=== PATIENT | female | born 1995 | race Caucasian/White ===

== ENCOUNTER 2021-04-21 18:25 | Emergency (ER) | payer MEDICAID ==
[~2021-04-21] VITALS: Ht 172.7 cm; Wt 109.3 kg
[2021-04-21 19:30] LABS: BASOPHILS % (AUTO) 0.3 % (0-1); EOSINOPHILS % (AUTO) 0.3 % (0-6); HEMATOCRIT 42.5 % (35.0-45.0); HEMOGLOBIN 14.3 g/dl (12.0-16.0); LYMPHOCYTES # (AUTO) 1.4 X10'3 (1.1-4.8); LYMPHOCYTES % (AUTO) 16.2 % (21-51); MEAN CORPUSCULAR HEMOGLOBIN 28.3 PG (27.0-31.0); MEAN CORPUSCULAR HGB CONC 33.6 g/dL (33.0-36.5); MEAN CORPUSCULAR VOLUME 84.2 FL (78-98); MONOCYTES # (AUTO) 0.4 X10'3 (0-0.9); MONOCYTES % (AUTO) 4.9 % (2-12); NEUTROPHILS # (AUTO) 6.7 X10'3 (1.8-7.7); NEUTROPHILS % (AUTO) 78.3 % (42-75); PLATELET COUNT 294 X10'3 (140-440); RED BLOOD COUNT 5.05 X10'6 (4.20-5.60); RED CELL DISTRIBUTION WIDTH 14.8 % (11.5-14.5); WHITE BLOOD COUNT 8.5 X10'3 (4.5-11.0)
[2021-04-21 19:33] LABS: URINE HCG NEGATIVE (NEG)
[2021-04-21 19:34] LABS: CLARITY,URINE SLIGHTLY CLOUDY (Clear); COLOR,URINE YELLOW (Yellow); GLUCOSE, URINE NEGATIVE (Neg); KETONES,URINE TRACE mg/dl (Neg); LEUKOCYTE ESTERASE ,URINE NEGATIVE (Neg); NITRITES, URINE NEGATIVE (Neg); OCCULT BLOOD,URINE TRACE-INTACT (Neg); PH,URINE 5.5 (4.8-8.0); PROTEIN,URINE TRACE mg/dl (Neg); UROBILINOGEN,URINE 0.2 E.U/dL (0.2-1.0)
[2021-04-21 19:42] LABS: UA COLLECTION TYPE CLN CATCH MIDSTREAM
[2021-04-21 19:43] LABS: HYALINE CASTS 0-3 /LPF (NEGATIVE); SQUAMOUS EPITHELIAL CELL,UR MANY /LPF (FEW)
[2021-04-21 19:44] LABS: BACTERIA,URINE FEW /HPF (Neg); CAL OXALATE CRYSTALS 2+ /HPF (NEGATIVE); RBC,URINE 0-2 /HPF (0-2); WBC,URINE 0-4 /HPF (0-4)
[2021-04-21 19:44] LABS: D-DIMER < 0.19 MG/L FEU (0-0.50)
[2021-04-21 19:47] LABS: URINE AMPHETAMINE SCREEN NEGATIVE (Neg); URINE BARBITUATE SCREEN NEGATIVE (Neg); URINE BENZODIAZEPINES SCREEN NEGATIVE (Neg); URINE CANNABINOID SCREEN POSITIVE (Neg); URINE COCAINE SCREEN NEGATIVE (Neg); URINE METHADONE SCREEN NEGATIVE (Neg); URINE OPIATE SCREEN NEGATIVE (Neg); URINE PHENCYCLIDINE SCREEN NEGATIVE (Neg)
[2021-04-21 19:49] LABS: ALANINE AMINOTRANSFERASE 20 U/L (12-78); ALBUMIN/GLOBULIN RATIO 1.1 (1.1-1.5); ALKALINE PHOSPHATASE 60 IU/L (46-116); ANION GAP 11 (8-16); ASPARTATE AMINO TRANSFERASE 18 U/L (10-37); BILIRUBIN,TOTAL 0.2 MG/DL (0.1-1.0); BLOOD UREA NITROGEN 12 MG/DL (7-18); BUN/CREATININE RATIO 11.3 (6.6-38.0); CALCIUM 9.3 MG/DL (8.5-10.1); CHLORIDE 106 MMOL/L (99-107); CREATININE 1.06 MG/DL (0.40-0.90); GLUCOSE 127 MG/DL (70-104); POTASSIUM 3.9 MMOL/L (3.5-5.1); SODIUM 139 MMOL/L (135-145); TOTAL CARBON DIOXIDE 21.6 MMOL/L (24-32); TOTAL PROTEIN 7.8 G/DL (6.4-8.2); eGFR 63 ML/MIN
[2021-04-21] MEDS ORDERED: normal saline 1000ML IV soln IVB ONE (20:45)
--- NOTE | 2021-04-21 21:49 | NUR ---
PATIENT SEEN AND TREATED BY N/P. JUDE ZENDEJAS'D BY THIS [employer] RENTAL CLERK. CATH INTACT. 1L NACL INFUSED. NO PROBLEMS NOTED. DISCH TO HOME WITH FLU INST.
[2021-04-21 22:00] VITALS: BP 148/72
== END 2021-04-21 22:03 | disposition home or self-care (01) ==
LOC: ER 18:26
DX: Z02.89 Encounter for other administrative examinations (principal); E86.0 Dehydration; R06.02 Shortness of breath; R53.83 Other fatigue; F17.200 Nicotine dependence, unspecified, uncomplicated; F12.90 Cannabis use, unspecified, uncomplicated; Z56.0 Unemployment, unspecified
CPT/HCPCS: 36415; 71045; 80053; 80305; 81001; 81025; 84443; 84484; 85025; 85379; 93005; 99285; J7030

== ENCOUNTER 2021-07-07 11:49 | Emergency (ER) | payer MEDICAID ==
[~2021-07-07] VITALS: Ht 172.7 cm; Wt 92.0 kg
[2021-07-07 12:10] VITALS: BP 159/89
[2021-07-07 13:58] LABS: CLARITY,URINE CLOUDY (Clear); COLOR,URINE YELLOW (Yellow); GLUCOSE, URINE NEGATIVE (Neg); KETONES,URINE NEGATIVE (Neg); LEUKOCYTE ESTERASE ,URINE NEGATIVE (Neg); NITRITES, URINE NEGATIVE (Neg); OCCULT BLOOD,URINE TRACE-INTACT (Neg); PH,URINE 8.5 (4.8-8.0); PROTEIN,URINE NEGATIVE (Neg); UROBILINOGEN,URINE 0.2 E.U/dL (0.2-1.0)
[2021-07-07 14:03] LABS: ALANINE AMINOTRANSFERASE 14 U/L (12-78); ALKALINE PHOSPHATASE 51 IU/L (46-116); ANION GAP 10 (8-16); ASPARTATE AMINO TRANSFERASE 16 U/L (10-37); BILIRUBIN,TOTAL 0.4 MG/DL (0.1-1.0); BLOOD UREA NITROGEN 11 MG/DL (7-18); BUN/CREATININE RATIO 14.9 (6.6-38.0); CALCIUM 9.6 MG/DL (8.5-10.1); CHLORIDE 107 MMOL/L (99-107); CREATININE 0.74 MG/DL (0.40-0.90); GLUCOSE 101 MG/DL (70-104); SODIUM 143 MMOL/L (135-145); TOTAL CARBON DIOXIDE 25.8 MMOL/L (24-32); TOTAL PROTEIN 7.9 G/DL (6.4-8.2); eGFR > 90 ML/MIN
[2021-07-07 14:04] LABS: POTASSIUM 3.9 MMOL/L (3.5-5.1)
[2021-07-07 14:08] LABS: UA COLLECTION TYPE NON-SPECIFIED
[2021-07-07] MEDS ORDERED: SERT-434 PO (14:12)
[2021-07-07] MEDS ORDERED: ONDA8TAB13 PO (14:13)
[2021-07-07 14:26] LABS: MUCUS STRANDS MANY /LPF (Neg); SQUAMOUS EPITHELIAL CELL,UR MODERATE /LPF (FEW)
[2021-07-07 14:27] LABS: HYALINE CASTS 0-3 /LPF (NEGATIVE)
[2021-07-07 14:30] LABS: BACTERIA,URINE FEW /HPF (Neg)
[2021-07-07 14:37] LABS: WBC,URINE 0-4 /HPF (0-4)
[2021-07-07 14:38] LABS: AMORPHOUS PHOSPHATES 4+; CAL OXALATE CRYSTALS FEW /HPF (NEGATIVE)
== END 2021-07-07 14:26 | disposition home or self-care (01) ==
LOC: ER 11:49
DX: E86.0 Dehydration (principal); R06.02 Shortness of breath; R05.9 Cough, unspecified; E03.9 Hypothyroidism, unspecified; G47.30 Sleep apnea, unspecified; N32.81 Overactive bladder; F12.90 Cannabis use, unspecified, uncomplicated; Z56.0 Unemployment, unspecified; Z79.899 Other long term (current) drug therapy
CPT/HCPCS: 36415; 80053; 81001; 99283

== ENCOUNTER 2021-09-01 13:34 | Emergency (ER) | payer MEDICAID ==
[~2021-09-01] VITALS: Ht 172.7 cm; Wt 104.5 kg
[~2021-09-01 13:34] MED LIST: ONDA8TAB13 PO; SERT-434 PO
[2021-09-01 13:38] VITALS: BP 143/85
[2021-09-01] MEDS ORDERED: SERT-434 PO (14:45)
== END 2021-09-01 14:58 | disposition home or self-care (01) ==
LOC: ER 13:35
DX: F32.A Depression, unspecified (principal); Z76.0 Encounter for issue of repeat prescription; E03.9 Hypothyroidism, unspecified; F12.90 Cannabis use, unspecified, uncomplicated; Z56.0 Unemployment, unspecified; Z79.899 Other long term (current) drug therapy
CPT/HCPCS: 99281

== ENCOUNTER 2024-09-05 12:30 | Outpatient (CLI) | payer MEDICAID ==
[~2024-09-05 12:30] MED LIST changes: +ONDA-245 PO; -ONDA8TAB13 PO
--- NOTE | 2024-09-05 21:20 | [facility] CONSULT REPORT ---
[facility] Procedure Note [facility] Procedure Note Consult [facility] Note # Demographics Type of EEG Read: - Routine EEG - video Patient Location: Outpatient First Name: Kelli Last Name: Nunu Date of : 1995 Age: 29 Gender: Female Facility: [facility] Time of Initial Page (): 09/05/2024 13:27 Time of Return Call ([place] Time): 09/05/2024 13:27 # EEG Interpretation Start Time of EEG Read ( Time): 09/05/2024 12:52 Stop Time of EEG Read ([place] ): 09/05/2024 13:17 Duration: 0h 25m Technical Details: - The EEG electrodes were placed using the standard International 10-20 system of electrode placement. Video and an accessory EKG lead were used during the course of this study. - This study was recorded using the Bit[employer] EEG software Indication: - abnormal movements # Description Hyperventilation: performed Phases Captured: - awake Symmetry: symmetric Posterior Dominant Rhythm: present, attenuates on eye opening Predominant Frequencies: posterior dominant alpha (8-12 Hz) Amplitude: normal Reactivity: yes Variability: yes Continuity: continuous EKG: NSR # Abnormalities Stimulation: - hyperventilation does NOT cause abnormalities Epileptiform Abnormalities: - NOT present Focal Slowing: no Seizure: - NOT present Artifact: movement and muscle artifact # Impression Impression: normal # Clinical Correlation Clinical Correlation: A normal EEG does not exclude nor support the diagnosis of epilepsy. Additional Comments: Pt had eye flutter episodes and side to side head movements that did not have any EEG correlate concerning for seizure, hence is non epileptic in nature # Logistics Telemedicine: remote EEG review: EEG reviewed remotely # Demographics First Name: Kelli Last Name: Nunu Facility: [facility] Neuro Consult Order placed for: Yes (ElectroEncephalogram Note) TEE MONROY MD Sep 05, 2024 21:20
== END 2024-09-05 23:59 | disposition home or self-care (01) ==
LOC: RAD 12:30
PROVIDERS: ATTEND Nurse Practitioner Family
DX: R56.9 Unspecified convulsions (principal); E03.9 Hypothyroidism, unspecified; K21.9 Gastro-esophageal reflux disease without esophagitis; M99.02 Segmental and somatic dysfunction of thoracic region; Z79.899 Other long term (current) drug therapy
CPT/HCPCS: 95816